=== PATIENT | female | born 1975 | race Caucasian/White ===

== ENCOUNTER → 2017-02-02 | Outpatient (CLI) | payer OTHER | LOC: BRMIMAGING 08:59 | PROVIDERS: ATTEND Physician Assistant Medical | DX: N60.11 Diffuse cystic mastopathy of right breast (principal); N60.12 Diffuse cystic mastopathy of left breast | CPT/HCPCS: 76641-PO; G0204 ==

== ENCOUNTER → 2018-03-22 | Outpatient (CLI) | payer OTHER | LOC: BRMIMAGING 11:02 | PROVIDERS: ATTEND Physician Assistant Medical | DX: Z12.31 Encounter for screening mammogram for malignant neoplasm of breast (principal) ==